=== PATIENT | male | born 1965 | race African-American/Black ===

== ENCOUNTER 2017-07-16 17:22 | Emergency (ER) | payer OTHER ==
--- NOTE | 2017-07-16 17:41 | EDM.PDOC ---
ED HPI GENERAL MEDICAL PROBLEM - General Chief Complaint: Cardiovascular Problem Stated Complaint: HBP/DIZZY Time Seen by Provider: 07/16/17 17:38 Source of Information: Reports: Patient History Limitations: Reports: No Limitations - History of Present Illness INITIAL COMMENTS - FREE TEXT/NARRATIVE: History of present illness: []Patient was found to have high blood pressure a couple weeks ago so he bought a blood pressure cuff at [employer] has been checking it has been running in the 150s/90s. Today he was at work and his coworker checked it again it was 150s/ 100s. States he has a mild headache and was dizzy earlier. He denies having any chest pain or shortness of breath. Patient has no primary physician but a long time ago he was told he has high cholesterol but has never been treated for it. Review of systems: As per history of present illness and below otherwise all systems reviewed and negative. Past medical history: As per history of present illness and as reviewed below otherwise noncontributory. Surgical history: As per history of present illness and as reviewed below otherwise noncontributory. Social history: No reported history of drug or alcohol abuse. Family history: As per history of present illness and as reviewed below otherwise noncontributory. Physical exam: General: Well developed, well nourished in NAD HEENT: Atraumatic, normocephalic, pupils reactive, negative for conjunctival pallor or scleral icterus, mucous membranes moist, throat clear, neck supple, nontender, trachea midline. Lungs: Clear to auscultation, breath sounds equal bilaterally, chest nontender. Heart: S1S2, regular, negative for clicks, rubs, or JVD. Abdomen: Soft, nondistended, nontender. Negative for masses or hepatosplenomegaly. Negative for costovertebral tenderness. Pelvis: Stable nontender. Genitourinary: Deferred. Rectal: Deferred. Extremities: Atraumatic, negative for cords or calf pain. Neurovascular unremarkable. Neuro: Awake, alert, oriented. Cranial nerves II through XII unremarkable. Cerebellum unremarkable. Motor and sensory unremarkable throughout. Exam nonfocal. Diagnostics: []Blood pressure here is stable Therapeutics: [] Impression: []Uncontrolled blood pressure history of high cholesterol untreated Plan: []Follow-up with primary care physician further treatment Definitive disposition and diagnosis as appropriate pending reevaluation and review of above. headache Pain Score (Numeric/FACES): 4 - Related Data Allergies Allergy/AdvReac Type Severity Reaction Status Date / Time No Known Allergies Allergy Verified 07/16/17 17:39 Home Meds: Home Meds . [No Known Home Meds] 07/16/17 [History] Past Medical History - Past Health History Medical/Surgical History: Denies Medical/Surgical History Cardiovascular History: Reports: High Cholesterol Other Cardiovascular History: pt reported history of elevated cholesterol but did not take any medication for it - Infectious Disease History Infectious Disease History: Reports: Chicken Pox Social & Family History - Family History Family Medical History: Noncontributory - Tobacco Use Smoking Status *Q: Never Smoker - Caffeine Use Caffeine Use: Reports: Soda Caffeine Use Comment: 2drinks/month - Alcohol Use Days Per Week of Alcohol Use: 1 Number of Drinks Per Day: 3 Total Drinks Per Week: 3 - Recreational Drug Use Recreational Drug Use: No ED ROS GENERAL - Review of Systems Review Of Systems: See Below (See history of present illness) ED EXAM, GENERAL - Physical Exam Exam: See Below (See history of present illness) Course - Vital Signs Last Recorded V/S: Last Vital Signs Temp 97.2 F 07/16/17 17:39 Pulse 65 07/16/17 17:39 Resp 18 07/16/17 17:39 BP 157/63 H 07/16/17 17:39 Pulse Ox 98 07/16/17 17:39 Departure - Departure Time of Disposition: 17:50 Disposition: Home, Self-Care 01 Condition: Good Clinical Impression: Uncontrolled hypertension Referrals: PCP,None [Primary Care Provider] - Pawan Solorzano MD [Resident] - Forms: ED Department Discharge Additional Instructions: The following information is given to patients seen in the emergency department who are being discharged to home. This information is to outline your options for follow-up care. We provide all patients seen in our emergency department with a follow-up referral. The need for follow-up, as well as the timing and circumstances, are variable depending upon the specifics of your emergency department visit. If you don't have a primary care physician on staff, we will provide you with a referral. We always advise you to contact your personal physician following an emergency department visit to inform them of the circumstance of the visit and for follow-up with them and/or the need for any referrals to a consulting specialist. The emergency department will also refer you to a specialist when appropriate. This referral assures that you have the opportunity for follow-up care with a specialist. All of these measure are taken in an effort to provide you with optimal care, which includes your follow-up. Under all circumstances we always encourage you to contact your private physician who remains a resource for coordinating your care. When calling for follow-up care, please make the office aware that this follow-up is from your recent emergency room visit. If for any reason you are refused follow-up, please contact the [facility] Emergency Department at and asked to speak to the emergency department charge nurse. Follow-up with primary care physician call this week for an appointment. [facility] [address] [place] [id number]
[2017-07-16 18:06] VITALS: BP 162/92
== END 2017-07-16 18:00 | disposition home or self-care (01) ==
LOC: MW.ED 17:22
DX: I10 Essential (primary) hypertension (principal); E78.00 Pure hypercholesterolemia, unspecified
CPT/HCPCS: 99282; 99283